=== PATIENT | male | born 1955 | race Caucasian/White ===

== ENCOUNTER → 2025-02-08 | Outpatient (CLI) | payer MEDICARE ==
[2025-02-08 15:54] LABS: ALT 9 U/L (10-49); AST 30 U/L (14-35); Albumin 4.6 g/dL (3.8-4.9); Albumin/Globulin Ratio 2.30 Ratio (1.60-3.17); Alkaline Phosphatase 102 U/L (41-126); Anion Gap 10.70 mmol/L (4.00-12.00); BUN/Creat Ratio 8.50 Ratio (12.00-20.00); Blood Urea Nitrogen 6.8 mg/dL (9.0-27.0); Calcium 9.4 mg/dL (8.7-10.3); Carbon Dioxide 25.3 mmol/L (21.6-31.8); Chloride 99 mmol/L (96-109); Cholesterol 149.00 mg/dL (0.00-200.00); Globulin 2.0 g/dL (1.6-3.3); Glucose 84 mg/dL (70-110); HDL Cholesterol 59.70 mg/dL (40.00-60.00); LDL Cholesterol,Calculated 70.9 mg/dL (0.0-131.0); Potassium 5.5 mmol/L (3.5-5.5); Prostate Specific Antigen 0.35 ng/mL (0.000-6.500); Sodium 135 mmol/L (135-145); Total Protein 6.6 g/dL (6.2-8.2); Triglycerides 92.20 mg/dL (0.00-149.00); VLDL Calculation 18.44 mg/dL (5.00-40.00)
[2025-02-08 16:06] LABS: HCT 38.3 % (39.6-50.0); HGB 12.6 g/dL (13.0-17.0); MCH 36.4 pg (27.0-32.0); MCHC 32.9 g/dL (32.0-37.0); MCV 110.7 FL (80.0-97.0); NRBC Per 100 WBC 0 X 10*3/uL (0.00-0.01); Platelet Count 441 X 10*3/uL (140-440); RBC 3.46 X 10*6/uL (4.40-5.60); RDW 16.2 % (11.5-14.5); WBC 5.10 X 10*3/uL (4.50-10.00)
[2025-02-08 16:35] LABS: Basophils # (A) 0.11 X 10*3/uL (0.00-0.10); Basophils % (A) 2.2 %; Eosinophils # (A) 0.16 X 10*3/uL (0.04-0.35); Eosinophils % (A) 3.1 %; Immature Grans, Automated 0.20 %; Lymphocytes # (A) 1.17 X 10*3/uL (0.90-5.00); Lymphocytes % (A) 22.9 %; Macrocytosis (M) 2+ (None Seen); Monocytes # (A) 0.96 X 10*3/uL (0.20-1.00); Monocytes % (A) 18.8 %; Neutrophils # (A) 2.69 X 10*3/uL (1.80-7.70); Neutrophils % (A) 52.8 %
== END | disposition home or self-care (01) ==
LOC: LABWHC1 10:20
PROVIDERS: ATTEND Family Medicine
DX: Z00.00 Encounter for general adult medical examination without abnormal findings (principal); Z12.5 Encounter for screening for malignant neoplasm of prostate; E78.5 Hyperlipidemia, unspecified
CPT/HCPCS: 36415; 80053; 80061; 84153; 85025